=== PATIENT | male | born 2005 | race Caucasian/White ===

== ENCOUNTER 2025-05-12 03:08 | Emergency (ER) | payer OTHER ==
[~2025-05-12] VITALS: Ht 188 cm; Wt 79.5 kg
[2025-05-12] MEDS: KETOROLAC 30 MG/ML 1 ML VIAL IV ONE (05:24)
[2025-05-12] MEDS: NS (Normal Saline) 0.9% 1,000 ML IV ONE (05:24)
[2025-05-12] MEDS: diphenhydrAMINE 50 MG/ML VIAL IV ONE (05:24)
[2025-05-12] MEDS ORDERED: AMOX500C PO (06:26)
[2025-05-12 06:30] VITALS: BP 108/56
[2025-05-12 06:45] VITALS: TEMP 98.8; O2SAT 98
[2025-05-12] MEDS: AMOXICILLIN 500 MG CAP PO ONE (06:48)
== END 2025-05-12 06:57 | disposition home or self-care (01) ==
LOC: M ED 03:08
DX: J01.90 Acute sinusitis, unspecified (principal); R51.9 Headache, unspecified
CPT/HCPCS: 87486; 87581; 87633; 87798; 96361; 96374; 96375; 99284; J1200; J1885; J2765